=== PATIENT | female | born 1935 | race Native Hawaiian/Other Pacific Islander ===

== ENCOUNTER 2017-06-09 17:57 | Outpatient (CLI) | payer OTHER ==
[~2017-06-09 17:57] MED LIST: CLARITIN10 MG PO; GABA300C2 PO; METOPROLOL25 M1 OR; SM OMEPRAZOLE20 MG OR; TRAM50TA PO; XARELTO20 MG OR
== END 2017-06-09 19:44 | disposition home or self-care (01) ==
LOC: LAB 17:57
DX: N39.0 Urinary tract infection, site not specified (principal)
CPT/HCPCS: 81000; 87086; 87088